=== PATIENT | female | born 1990 | race Two or more races ===

== ENCOUNTER 2017-09-04 19:22 | Emergency (ER) | payer SELFPAY ==
[~2017-09-04] VITALS: Ht 160 cm; Wt 68.0 kg
[~2017-09-04 19:22] MED LIST: ACET325T53; [UNRECOGNIZED DRUG - REMARK]
[2017-09-04 19:27] VITALS: BP 123/71
== END 2017-09-04 19:47 | disposition home or self-care (01) ==
LOC: ER 19:29
DX: H92.02 Otalgia, left ear (principal); H91.92 Unspecified hearing loss, left ear; Z60.2 Problems related to living alone
CPT/HCPCS: A4606; Z7502; Z7610